=== PATIENT | female | born 1990 | race Two or more races ===

== ENCOUNTER 2017-09-13 16:58 | Emergency (ER) | payer OTHER ==
[~2017-09-13] VITALS: Ht 160 cm; Wt 81.6 kg
[2017-09-13] MEDS ORDERED: NKM (17:08)
--- NOTE | 2017-09-13 17:27 | Emergency Room Report ---
History of Present Illness General Chief Complaint: Multiple Trauma/Fall Source: Patient (Kenrick Monsivais) Present Illness HPI 26-year-old female patient presents to ER complaining of low back pain status post few hours. Patient reports that she was at work cleaning the floors when she stood up suddenly and began to experience low back pain after standing up. Denies history or fall. Denies hitting her head or loss of consciousness. Denies bowel or bladder incontinence. Reports that she may be . Also complains of suprapubic discomfort.and dysuria following back pain symptom onset. Denies hematuria, vaginal discharge. Reports last menstrual period 3 weeks ago. Denies abdominal pain, flank pain, fever, vomiting. Denies chest pain, shortness of breath. denies radiation of pain down the legs. denies bowel or bladder incontinence. (Kenrick Monsivais) Allergies: Coded Allergies: No Known Allergies (Unverified , 09/13/17) Patient History Past Medical History: see triage record Last Menstrual Period: 3 weeks ago Reviewed Nursing Documentation: PMH: Agreed; PSxH: Agreed (Kenrick Monsivais) Nursing Documentation-PMH Past Medical History: No Stated History (Kenrick Monsivais) Review of Systems All Other Systems: negative except mentioned in HPI (Kenrick Monsivais) Physical Exam Vital Signs Date Time Temp Pulse Resp B/P (MAP) Pulse Ox O2 Delivery O2 Flow Rate FiO2 09/13/17 17:03 98.6 83 16 115/63 97 Room Air 98.6 Sp02 EP Interpretation: reviewed, normal General Appearance: well appearing, no apparent distress, alert, GCS 15, non- toxic Head: normocephalic, atraumatic Eyes: bilateral eye normal inspection, bilateral eye PERRL ENT: hearing grossly normal, normal pharynx, no angioedema, normal voice, uvula midline, moist mucus membranes Neck: full range of motion Respiratory: lungs clear, normal breath sounds, no rhonchi, no respiratory distress, no accessory muscle use, no wheezing, speaking full sentences Gastrointestinal: non tender, soft, no mass, non-distended, no guarding, no rebound, other - negative Rovsing, negative obturator Genitourinary: no CVA tenderness Musculoskeletal: back normal, digits/nails normal, gait/station normal, non- tender, decreased range of motion - back secondary to pain and stiffness, other - no bony depression, no spinous process tenderness Neurologic: alert, oriented x3, responsive, motor strength/tone normal, sensory intact Psychiatric: mood/affect normal Skin: no rash (Kenrick Monsivais) Medical Decision Making PA Attestation Dr. Parks is my supervising Physician whom patient management has been discussed with. (Kenrick Monsivais) Diagnostic Impression: Primary Impression: Urinary tract infection Qualified Codes: N30.00 - Acute cystitis without hematuria Additional Impression: Low back pain Qualified Codes: M54.5 - Low back pain ER Course Pt. presents to the ED on back pain and dysuria. Ddx considered but are not limited to fracture, sprain, strain, contusion, spasm , disc herniation, UTI, vaginitis, bacterial vaginosis. No evidence of incontinence, low suspicion for cauda equina syndrome. No fever, nontoxic appearing, no radiation of pain, low suspicion for epidural mass. No abdominal TTP, no blood pressure elevation, nontoxic appearing, low suspicion for AAA. Negative Rovsing, negative obturator, low suspicion for appendicitis. Does not require imaging at this time. no abdominal or suprapubic pain or tenderness to palpation, no RLQ or LLQ pain, low suspicion for ovarian torsion, does not require imaging at this time. Vital signs: are WNL, pt. is afebrile Ordered imaging and pain medication. ER COURSE UA positive for bacteria, white blood cells, leukocyte esterase, patient symptomatic, likely UTI will provide antibiotics for treatment. urine negative. Discuss results with patient. Informed patient UTI and onset back pain symptoms likely unrelated. drink plenty of fluids. Return to ER for worsening of symptoms. Provided with pain medication. An X-ray of the lumbar spine shows no acute disease per the preliminary reading. Discuss results with the patient. Provided patient with copy of results. Instructed patient to followup with PCP and discuss results of report with patient, discuss need for further treatment and referral. Patient instructed on RICE method: rest, ice, compression, elevation. Patient instructed on rest, ice and heat for pain symptoms. Likely muscular pain. informed patient pain may worsen in following days. Workmen's Compensation paperwork completed. Advised patient return to modified work. Followup with primary care provider for medical clearance to return to activities. Discuss referral to ortho/pain management/PT as needed. Discuss further imaging with MRI/CT as needed. DISCHARGE: -Rx provided for Tylenol for pain symptoms. -Rx provided for Methocarbamol. SE drowsiness, do not drink, drive, or operate heavy machinery while using. -Rx provided for lidocaine patches -Rx provided for Keflex At this time pt. is stable for d/c to home. Patient resting comfortably, in no acute distress, nontoxic appearing. Will provide printed patient care instructions, and any necessary prescriptions. Patient advised on side effects of medications. Patient instructed to follow with primary care provider in 2-3 days and to request further orthopedic follow-up. Care plan and follow up instructions have been discussed with the patient prior to discharge. Patient instructed to rest and ice Take medications as directed. Patient questions asked and answered. ER precautions given, patient instructed to return to ER immediately for any new or worsening of symptoms including but not limited to chest pain, SOB, vision loss, abdominal pain, intractable vomiting. - Please note that this Emergency Department Report was dictated using [employer] technician technology software, occasionally this can lead to erroneous entry secondary to interpretation by the dictation equipment. Labs Test 09/13/17 17:30 Urine Color Radha Urine Appearance Slightly cloudy Urine pH 7 (4.5-8.0) Urine Specific [place] 1.015 (1.005-1.035) Urine Protein 1+ (NEGATIVE) Urine Glucose (UA) Negative (NEGATIVE) Urine Ketones Negative (NEGATIVE) Urine Occult Blood 3+ (NEGATIVE) Urine Nitrite Negative (NEGATIVE) Urine Bilirubin Negative (NEGATIVE) Urine Ictotest Negative Urine Urobilinogen 1 MG/DL (0.0-1.0) Urine Leukocyte Esterase 2+ (NEGATIVE) Urine RBC 10-15 /HPF (0 - 2) Urine WBC 15-20 /HPF (0 - 2) Urine Squamous Epithelial Cells Moderate /LPF (NONE/OCC) Urine Bacteria Moderate /HPF (NONE) Urine HCG, Qualitative Negative (NEGATIVE) (Kenrick Monsivais P.A.) Other X-Ray Diagnostic Results Other X-Ray Diagnostic Results : X-Ray ordered: lumbar spine # of Views/Limited Vs Complete: 3 View Indication: Pain EP Interpretation: Yes PA Xray: Interpretation reviewed, by supervising MD, and agrees with findings. Interpretation: no dislocation, no soft tissue swelling, no fractures Impression: No acute disease PA Scribe Text Robin Monsivais PA-C (Kenrick Monsivais) Other X-Ray Diagnostic Results : Electronically Signed by: Evelyn documentation reviewed by me and is accurate, Maximus Parks MD. (Maximus Parks M.D.) Last Vital Signs Date Time Temp Pulse Resp B/P (MAP) Pulse Ox O2 Delivery O2 Flow Rate FiO2 09/13/17 17:03 98.6 83 16 115/63 97 Room Air 98.6 (Kenrick Monsivais.Ariadna) Disposition: HOME, SELF-CARE Condition: Stable Scripts Acetaminophen* (TYLENOL EXTRA STRENGTH*) 500 Mg Tablet 500 MG ORAL Q8H PRN for Prn Headache/Temp > 101, #30 TAB 0 Refills Prov: Kenrick Monsivais 09/13/17 Methocarbamol* (ROBAXIN*) 500 Mg Tablet 500 MG PO TID, #21 TAB 0 Refills Prov: Kenrick Monsivais 09/13/17 Lidocaine (Lidocaine) 1 Each Adh..patch 700 MG TP DAILY for 7 Days, #7 PATCH Prov: Kenrick Monsivais 09/13/17 Cephalexin* (KEFLEX*) 500 Mg Capsule 500 MG ORAL EVERY 12 HOURS, #14 CAP 0 Refills Prov: Kenrick Monsivais 09/13/17 Patient Instructions: Back Pain, Adult, [id number], Urinary Tract Infection, [id number] Additional Instructions: Followup with primary care provider and followup with and/or OBGYN as needed. Discuss referral for back pain, discussed need for further imaging with PCP. Discuss referral to orthopedics, pain management, and/or physical therapy as needed. Drink plenty of fluids. Take medications as directed. Side effect drowsiness, do not take muscle relaxant prior to drinking, driving, operating heavy machinery. Patient advised on rest, ice and heat. Patient questions asked and answered. ER precautions given, patient instructed to return to ER immediately for any new or worsening of symptoms. Kenrick Monsivais Sep 13, 2017 17:27 Maximus Parks M.D. Sep 14, 2017 11:47
[2017-09-13 17:53] VITALS: BP 115/63
[2017-09-13 18:42] LABS: BILIRUBIN, URINE NEGATIVE (NEGATIVE); COLOR,URINE AMBER; GLUCOSE, URINE (UA) NEGATIVE (NEGATIVE); KETONES,URINE NEGATIVE (NEGATIVE); LEUKOCYTE ESTERASE ,URINE 2+ (NEGATIVE); NITRITE,URINE NEGATIVE (NEGATIVE); PH,URINE 7 (4.5-8.0); PROTEIN,URINE 1+ (NEGATIVE); UROBILINOGEN,URINE 1 MG/DL (0.0-1.0)
[2017-09-13 18:43] LABS: APPEARANCE,URINE SLIGHTLY CLOUDY
[2017-09-13] MEDS ORDERED: ROBAXIN500 MG PO (19:57)
[2017-09-13] MEDS ORDERED: TYLENOL EXTRA500 MG ORAL (19:57)
[2017-09-13] MEDS ORDERED: CEPHALEXIN500 MG ORAL (19:57)
[2017-09-13] MEDS ORDERED: LIDOCAINE700 M1 TP (19:57)
--- NOTE | 2017-09-13 20:02 | Diagnostic Imaging Report ---
EXAM: XR Lumbar Spine, 2 or 3 Views CLINICAL HISTORY: PAIN TECHNIQUE: Frontal and lateral views of the lumbar spine. COMPARISON: No relevant prior studies available. FINDINGS: Vertebrae: No fracture or malalignment. Disc spaces: No acute findings. Soft tissues: No radiodense foreign body. IMPRESSION: No fracture or malalignment.
[2017-09-13 20:06] VITALS: BP 120/74
[2017-09-13 20:10] VITALS: BP 115/63
== END 2017-09-13 20:10 | disposition home or self-care (01) ==
LOC: EMR 17:30
DX: N39.0 Urinary tract infection, site not specified (principal); M54.5 Low back pain; X50.0XXA Overexertion from strenuous movement or load, initial encounter; Y93.E9 Activity, other interior property and clothing maintenance; Y92.59 Other trade areas as the place of occurrence of the external cause; Y99.0 Civilian activity done for income or pay
CPT/HCPCS: 72020; 81003; 81025; 87086; 99284